=== PATIENT | female | born 1970 | race Two or more races ===

== ENCOUNTER 2019-04-30 07:45 | Day surgery (SDC) | payer OTHER | END 2019-04-30 13:10 | disposition home or self-care (01) | LOC: AMB-ENDOS 07:45 | DX: K64.1 Second degree hemorrhoids (principal); Z12.11 Encounter for screening for malignant neoplasm of colon ==

== ENCOUNTER 2019-08-05 14:45 | Outpatient (CLI) | payer OTHER | END 2019-08-05 15:11 | disposition home or self-care (01) | LOC: LAB 14:45 | DX: M25.461 Effusion, right knee (principal); D64.89 Other specified anemias; M06.4 Inflammatory polyarthropathy; M10.9 Gout, unspecified ==

== ENCOUNTER 2023-04-10 11:29 | Emergency (ER) | payer OTHER ==
[~2023-04-10] VITALS: Ht 167.6 cm; Wt 60.3 kg
[2023-04-10] MEDS ORDERED: PROMETRIUM200 MG PO (12:50)
== END 2023-04-10 14:30 | disposition home or self-care (01) ==
LOC: ER 11:29
DX: M62.830 Muscle spasm of back (principal); Z88.0 Allergy status to penicillin

== ENCOUNTER 2023-10-01 05:50 | Day surgery (SDC) | payer OTHER ==
[2023-09-22 10:17] LABS: HEMATOCRIT 41.4 % (36.0-45.00); HEMOGLOBIN 14.2 g/dL (12.0-15.00); MEAN CELL VOLUME 97.2 fL (80.00-100.00); MEAN CORPUSCULAR HEMOGLOBIN 33.2 pg (27.00-32.0); MEAN CORPUSCULAR HGB CONC 34.2 g/dl (32.0-36.0); PLATELET COUNT 271 K/uL (150-450); RED BLOOD COUNT 4.26 M/uL (4.00-6.00); RED CELL DISTRIBUTION WIDTH 12.9 % (11.5-14.5)
[2023-09-22 10:43] LABS: INR 1.01; PARTIAL THROMBOPLASTIN TIME 29.8 SECONDS (22.0-34.0); PROTHROMBIN TIME 10.6 SECONDS (9.0-11.5)
[2023-09-22 10:45] LABS: ALBUMIN 4.1 gm/dL (3.4-5.0); BILIRUBIN TOTAL 0.64 mg/dL (0.3-1.2); CALCIUM 9.3 mg/dL (8.5-10.1); CREATININE SERUM 0.8 mg/dL (0.55-1.02); GFR 75.03; GLOBULINA 3.6 G/DL (2.4-3.5); POTASSIUM 4.04 mEq/L (3.5-5.1); TOTAL PROTEIN 7.7 gm/dL (6.4-8.2)
[~2023-10-01 05:50] MED LIST: PROMETRIUM200 MG PO
[2023-10-01] MEDS ORDERED: POVIDONE-IODINE 118 ML BOTT TOP ONE ×2 (07:14→11:15)
== END 2023-10-01 15:50 | disposition home or self-care (01) ==
LOC: CIR.AMB 05:50
PROVIDERS: ATTEND Obstetrics & Gynecology Maternal & Fetal Medicine
DX: N84.0 Polyp of corpus uteri (principal); N95.0 Postmenopausal bleeding; N72 Inflammatory disease of cervix uteri